=== PATIENT | male | born 1975 | race Caucasian/White ===

== ENCOUNTER → 2023-03-07 14:50 | Outpatient (BNVA) | payer SELFPAY | PROVIDERS: Visit Provider Emergency Medicine | DX: J02.9 Acute pharyngitis, unspecified (principal) | CPT/HCPCS: 87880 ==

== ENCOUNTER 2023-03-19 12:16 | Inpatient (IN) | payer BC, SELFPAY ==
[2023-03-19 12:23] VITALS: BP 155/101; PULSE 86; RESP 18; TEMP 36.7; O2SAT 96; BMI 35.4
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
[2023-03-19 13:06] LABS: Basophils % 0.5 %; Eosinophils # 0.2 10^3/uL (0.0-0.8); Eosinophils % 2.1 %; Hematocrit 50.4 % (37-53); Lymphocytes # 2.4 10^3/uL (0.8-4.8); Lymphocytes % 29.2 %; Mean Corpuscular HGB Conc 33.5 g/dL (30-55); Mean Corpuscular Hemoglobin 29.3 pg (27-33); Mean Corpuscular Volume 87.3 fl (82-101); Mean Platelet Volume 8.5 fL (7.4-10.4); Monocytes # 0.4 10^3/uL (0.2-0.9); Monocytes % 4.3 %; Neutrophils # 5.13 10^3/uL (1.8-7.7); Neutrophils % 63.8 %; Nucleated Red Blood Cells % 0 %; Platelet Count 274 10^3/cmm (157-399); Red Blood Count 5.77 10^6/uL (3.85-5.65); Red Cell Distribution Width 13.5 % (12.1-15.1); White Blood Count 8.05 10^3/uL (3.29-11.43)
--- NOTE | 2023-03-19 13:15 | PC.PHAR ---
pt and pts visitors states the pt takes no medications
--- NOTE | 2023-03-19 13:17 | XR_ITS ---
WS: [id number] Exam: XR skull <4V [id number] Date/Time of Exam: 03/19/2023 1:17 PM Reason For Exam: F20.9 - Schizophrenia, unspecified No skull fracture. Vascular and sutural markings appear normal. Physiologic intracranial calcificatio n is noted. No sign of bone destruction. Unremarkable soft tissues. IMPRESSION: 1. Unremarkable skull series.
[2023-03-19 13:25] LABS: Alanine Aminotransferase 23 U/L (0-41); Albumin Level 5.1 g/dL (3.5-5.2); Alkaline Phosphatase 90 U/L (40-130); Anion Gap 15.6 (5-19); Aspartate Amino Transferase 19 U/L (0-40); Blood Urea Nitrogen 16 mg/dL (6-20); Calcium 9.8 mg/dL (8.5-10.5); Carbon Dioxide 28 mmol/L (22-29); Chloride 99 mmol/L (98-107); Globulin 3.4 g/dL (1.3-4.6); Glomerular Filtration Rate 104.5 mL/min (90-130); Glucose 104 mg/dL (65-115); Osmolality Calculated 287 mOsm/kg (285-295); Potassium 4.6 mmol/L (3.5-5.1); Salicylate 1.6 mg/dL (3-10); Sodium 138 mmol/L (136-145); Total Bilirubin 0.6 mg/dL (0.15-1.2); Total Protein 8.5 g/dL (6.6-8.7)
[2023-03-19 13:30] LABS: Acetaminophen < 5.0 ug/mL (10-30); Alcohol Level < 10 mg/dL (0-10)
--- NOTE | 2023-03-19 15:05 | PC.NURSE ---
96 hr rights reviewed with patient with Raul FISHER @1310. No questions, comments or concerns verbalized by patient at this time. 96 hr material reviewed with patient in front of staff for outpatient treatment house in which he stays at. Patient copy left at bedside with pt.
[2023-03-19 15:20] VITALS: BP 149/97; PULSE 104; RESP 18; O2SAT 96
[2023-03-19 15:43] VITALS: BP 130/98; PULSE 93; RESP 17; TEMP 37.2; O2SAT 95
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
[2023-03-19 20:10] LABS: Amphetamines Screen Urine Negative (Negative); Barbiturates Screen Urine Negative (Negative); Benzodiazepines Screen Urine Negative (Negative); Cocaine Screen Urine Negative (Negative); Opiate Screen Urine Negative (Negative); PCP Screen Urine Negative (Negative); THC Screen Urine Negative (Negative)
[2023-03-19] MEDS: trazodone 50 mg Tablet PO ×2 (20:22→21:25)
[2023-03-19 20:32] VITALS: BP 131/87; PULSE 110; RESP 20; O2SAT 95
[2023-03-20 06:00] VITALS: RESP 15
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
[2023-03-20] MEDS: paliperidone ER 6 mg Tablet PO (13:15)
[2023-03-20 13:35] VITALS: BP 124/78; PULSE 80; RESP 15; TEMP 37; O2SAT 94
[2023-03-20] MEDS: trazodone 50 mg Tablet PO ×2 (20:26→21:44)
[2023-03-20 22:00] VITALS: BP 124/88; PULSE 121; RESP 18; TEMP 36.8; O2SAT 94
[2023-03-21 06:00] VITALS: BP 108/73; PULSE 90; RESP 16; TEMP 36.6; O2SAT 93
[2023-03-21] MEDS: paliperidone ER 6 mg Tablet PO (08:06)
[2023-03-21 14:00] VITALS: BP 118/76; PULSE 95; RESP 17; TEMP 36.5; O2SAT 95
--- NOTE | 2023-03-21 16:40 | P.NPUPN_ITS ---
Subjective NPU Subjective: Patient presented today reporting he feels better and is motivated to go home and go back to work. We discussed a need to monitor the medication and with his history likely initiate the long-acting injectable. He is reporting a willingness to do whatever to be discharged. Mental Status Exam MSE Comments: This is an overweight versus obese, white male, in hospital scrubs, with limited grooming and adequate eye contact. No abnormal movements, except for mild psychomotor retardation. Mostly cooperative with exam in mild to moderate distress. Speech was normal rate and volume. Mood described as ?I?m just ready to go, want to get this over with?; affect irritable. Thought process, organized . Thought content: patient denied any suicidal or homicidal ideation, delusions noted, patient denied visual hallucinations and endorsed auditory hallucinations. Attention, concentration, and memory appeared intact, but none were formally tested. Alert and oriented times three. Insight and judgment are impaired. Impulse control is impaired. Vitals/I&O/Wt Last Vital Signs Temp 97.7 F 03/21/23 14:00 Pulse 95 03/21/23 14:00 Resp 17 03/21/23 14:00 BP 118/76 03/21/23 14:00 Pulse Ox 95 03/21/23 14:00 O2 Del Method Room Air 03/21/23 06:00 Data NPU 03/19/23 12:58 03/19/23 12:58 A&P Assessment and plan (1) Psychosis: Qualifiers: Psychosis type: unspecified psychosis type Qualified Code(s): F29 - Unspecified psychosis not due to a substance or known physiological condition (2) Cannabis use disorder, moderate, in early remission, dependence: (3) Opioid use disorder, severe, in early remission: (4) Methamphetamine use disorder, severe, in early remission: (5) Schizophrenia: Plan This is a 47-year-old, white male, with a history of addiction issues, and about a year history of auditory hallucinations, who is convinced the cause is something that was put in his brain, even after MRI and other tests have shown nothing abnormal, who is currently in court mandated drug rehabilitation and monitoring after an arrest for harassment, related to the voices, who is willing to try medications. 1. Start Invega 6 mg. We will consider long-acting injectable. 2. Encourage individual, group, and milieu therapy. 3. Continue q-15-minute checks for safety. 4. Recommend sober living treatment at the highest level of care to which the patient is willing to commit. 5. File 21-day hold paperwork. Involuntary Hold Information 96 Hour Hold: 96 Hour Involuntary Admission: Yes 96 Hour Hold Ending Date: 03/23/23 96 Hour Hold Ending Time: 14:18 Attestations NPU Medical Necessity Statement*: Inpatient hospitalization is medically necessary and the clinically appropriate intervention, at this time. We will monitor medications and make changes as indicated.. Likely length of stay is three to five days. May change with 21 . Coding Level of Care Code Acute Code for [facility] Fwd Diagnoses Psychosis F29 Psychosis type: unspecified psychosis type Cannabis use disorder, moderate, in early remission, dependence F12.21 Opioid use disorder, severe, in early remission F11.21 Methamphetamine use disorder, severe, in early remission F15.21 Schizophrenia F20.9
[2023-03-21] MEDS: hyDROXYzine 25 mg Capsule 50 MG PO (19:37)
[2023-03-21] MEDS: OLANZapine 5 mg ODT PO (20:09)
[2023-03-21] MEDS: trazodone 50 mg Tablet PO (20:09)
[2023-03-21 22:00] VITALS: BP 136/79; PULSE 95; RESP 16; TEMP 36.9; O2SAT 98
[2023-03-22 06:00] VITALS: BP 122/79; PULSE 81; RESP 17; TEMP 36.7; O2SAT 96
[2023-03-22] MEDS: paliperidone ER 6 mg Tablet PO (09:03)
--- NOTE | 2023-03-22 12:11 | W.PM.NPUPNS ---
Subjective NPU Subjective: Patient presented today reporting that things are seeming to be improving with diminishing of auditory hallucinations and he denied currently having any of the thoughts about the device in his brain or any conspiracy theories. We discussed the risks, benefits and alternatives of initiating the Invega Sustenna given his history of nonadherence and he understood and agreed to proceed as is documented in this note. We discussed the timeline to possible discharge and filing of the 21-day hold. Mental Status Exam MSE Comments: This is an obese, white male, in hospital scrubs, with limited grooming and adequate eye contact. No abnormal movements, except for mild psychomotor retardation. Cooperative with exam in mild distress. Speech was normal rate and volume. Mood described as I am okay and I will take the shot if that is vet need to do; affect less irritable. Thought process, organized. Thought content: patient denied any suicidal or homicidal ideation, no delusions reported paranoid and bizarre delusions noted, patient denied visual hallucinations and endorsed auditory hallucinations that were diminishing. Attention, concentration, and memory appeared intact, but none were formally tested. Alert and oriented times three. Insight and judgment are impaired. Impulse control is impaired. Vitals/I&O/Wt Last Vital Signs Temp 98.0 F 03/22/23 06:00 Pulse 81 03/22/23 06:00 Resp 17 03/22/23 06:00 BP 122/79 03/22/23 06:00 Pulse Ox 96 03/22/23 06:00 O2 Del Method Room Air 03/22/23 06:00 Data NPU 03/19/23 12:58 03/19/23 12:58 A&P Assessment and plan (1) Psychosis: Qualifiers: Psychosis type: unspecified psychosis type Qualified Code(s): F29 - Unspecified psychosis not due to a substance or known physiological condition (2) Cannabis use disorder, moderate, in early remission, dependence: (3) Opioid use disorder, severe, in early remission: (4) Methamphetamine use disorder, severe, in early remission: (5) Schizophrenia: Plan This is a 47-year-old, white male, with a history of addiction issues, and about a year history of auditory hallucinations, who is convinced the cause is something that was put in his brain, even after MRI and other tests have shown nothing abnormal, who is currently in court mandated drug rehabilitation and monitoring after an arrest for harassment, related to the voices, who is willing to try medications. 1. Started Invega 6 mg. Given Invega Sustenna 234 mg IM to deltoid loading dose. Next injection due 03/29/2023 2. Encourage individual, group, and milieu therapy. 3. Continue q-15-minute checks for safety. 4. Recommend sober living treatment at the highest level of care to which the patient is willing to commit. 5. Filed 21-day hold paperwork. Involuntary Hold Information 96 Hour Hold: 96 Hour Involuntary Admission: Yes 96 Hour Hold Ending Date: 03/23/23 96 Hour Hold Ending Time: 14:18 Attestations NPU Medical Necessity Statement*: Inpatient hospitalization is medically necessary and the clinically appropriate intervention, at this time. We will monitor medications and make changes as indicated.. Likely length of stay is 5-8 days. May change with 21 hold. Coding Level of Care Code Acute Code for [facility] Fwd Diagnoses Psychosis F29 Psychosis type: unspecified psychosis type Cannabis use disorder, moderate, in early remission, dependence F12.21 Opioid use disorder, severe, in early remission F11.21 Methamphetamine use disorder, severe, in early remission F15.21 Schizophrenia F20.9
[2023-03-22 14:00] VITALS: BP 128/80; PULSE 109; RESP 16; O2SAT 95
[2023-03-22] MEDS: paliperidone palmitate 234 mg Syringe IM (14:48)
[2023-03-22] MEDS: OLANZapine 5 mg ODT PO ×2 (15:01→20:19)
--- NOTE | 2023-03-22 15:03 | PC.NURSE ---
Administered 234mg IM Invega to pt's R Deltoid, pt tolerated well.
[2023-03-22] MEDS: hyDROXYzine 25 mg Capsule 50 MG PO (19:37)
[2023-03-22 19:43] VITALS: BP 138/78; PULSE 85; RESP 20; TEMP 37; O2SAT 96
[2023-03-22] MEDS: trazodone 50 mg Tablet PO ×2 (20:18→21:25)
[2023-03-23] MEDS: paliperidone ER 6 mg Tablet PO (09:44)
--- NOTE | 2023-03-23 10:29 | P.NPUPN_ITS ---
Subjective NPU Subjective: Patient presented today reporting that he is doing fine overall. He identified reductions and auditory hallucinations and denied thinking about the supposed device in his head. He did have some notable discomfort talking about it but ultimately discussed being surprised that the medication could affect him and how he is thinking this quickly. We discussed that on staying until the next i njection and continuing to monitor his thought process during the process. Mental Status Exam MSE Comments: This is an obese, white male, in hospital scrubs, with limited grooming and adequate eye contact. No abnormal movements, except for mild psychomotor retardation. Cooperative with exam in mild distress. Speech was normal rate and volume. Mood described as I am okay and I will take the shot if that is vet need to do; affect less irritable. Thought process, organized. Thought content: patient denied any suicidal or homicidal ideation, no delusions reported paranoid and bizarre delusions noted, patient denied visual hallucinations and endorsed auditory hallucinations that were diminishing. Attention, concentration, and memory appeared intact, but none were formally tested. Alert and oriented times three. Insight and judgment are impaired. Impulse control is impaired. Vitals/I&O/Wt Last Vital Signs Temp 98.6 F 03/22/23 19:43 Pulse 85 03/22/23 19:43 Resp 20 H 03/22/23 19:43 BP 138/78 03/22/23 19:43 Pulse Ox 96 03/22/23 19:43 O2 Del Method Room Air 03/22/23 19:43 Data NPU 03/19/23 12:58 03/19/23 12:58 A&P Assessment and plan (1) Psychosis: Qualifiers: Psychosis type: unspecified psychosis type Qualified Code(s): F29 - Unspecified psychosis not due to a substance or known physiological condition (2) Cannabis use disorder, moderate, in early remission, dependence: (3) Opioid use disorder, severe, in early remission: (4) Methamphetamine use disorder, severe, in early remission: (5) Schizophrenia: Plan This is a 47-year-old, white male, with a history of addiction issues, and about a year history of auditory hallucinations, who is convinced the cause is something that was put in his brain, even after MRI and other tests have shown nothing abnormal, who is currently in court mandated drug rehabilitation and monitoring after an arrest for harassment, related to the voices, who is willing to try medications. 1. Started Invega 6 mg. Given Invega Sustenna 234 mg IM to deltoid loading dose 03/22/23. Next injection due 03/29/2023 2. Encourage individual, group, and milieu therapy. 3. Continue q-15-minute checks for safety. 4. Recommend sober living treatment at the highest level of care to which the patient is willing to commit. 5. Filed 21-day hold paperwork. Involuntary Hold Information 96 Hour Hold: 96 Hour Involuntary Admission: Yes 96 Hour Hold Ending Date: 03/23/23 96 Hour Hold Ending Time: 14:18 Attestations NPU Medical Necessity Statement*: Inpatient hospitalization is medically necessary and the clinically appropriate intervention, at this time. We will monitor medications and make changes as in dicated.. Likely length of stay is 4-7 days. May change with 21 hold. Coding Level of Care Code Acute Code for g Fwd Diagnoses Psychosis F29 Psychosis type: unspecified psychosis type Cannabis use disorder, moderate, in early remission, dependence F12.21 Opioid use disorder, severe, in early remission F11.21 Methamphetamine use disorder, severe, in early remission F15.21 Schizophrenia F20.9
[2023-03-23 13:27] VITALS: BP 117/73; PULSE 113; RESP 18; TEMP 37.2
[2023-03-23] MEDS: hyDROXYzine 25 mg Capsule 50 MG PO (19:34)
[2023-03-23 20:04] VITALS: BP 144/104; PULSE 113; RESP 18; TEMP 36.9; O2SAT 95
[2023-03-23] MEDS: trazodone 50 mg Tablet PO ×2 (20:13→21:32)
[2023-03-24 06:00] VITALS: BP 125/87; PULSE 102; RESP 16; TEMP 36.9; O2SAT 96
[2023-03-24] MEDS: paliperidone ER 6 mg Tablet PO (08:20)
--- NOTE | 2023-03-24 09:07 | W.PM.NPUPNS ---
Subjective NPU Subjective: Patient presented today reporting that his symptoms continues to diminish. We continue to discuss the goal of getting his second injection before discharge. He is supportive of that but continues to endorse a drive to get home to his family. We discussed that prior to taking this medication he was unable to really engage with his family secondary to his delusional network. He was clearly cognizant of that fact. Mental Status Exam MSE Comments: This is an obese, white male, in hospital scrubs, with limited grooming and adequate eye contact. No abnormal movements, except for mild psychomotor retardation. Cooperative with exam in no acute distress. Speech was normal rate and volume. Mood described as I am okay I just need to get home to my family; affect less irritable. Thought process, organized. Thought content: patient denied any suicidal or homicidal ideation, no delusions reported paranoid and bizarre, paranoid and persecutory delusions noted but diminishing, patient denied visual hallucinations and endorsed auditory hallucinations that were diminishing. Attention, concentration, and memory appeared intact, but none were formally tested. Alert and oriented times three. Insight and judgment are improving. Impulse control is impaired, but improving. Vitals/I&O/Wt Last Vital Signs Temp 98.4 F 03/24/23 06:00 Pulse 102 H 03/24/23 06:00 Resp 16 03/24/23 06:00 BP 125/87 03/24/23 06:00 Pulse Ox 96 03/24/23 06:00 O2 Del Method Room Air 03/23/23 13:27 Data NPU 03/19/23 12:58 03/19/23 12:58 A&P Assessment and plan (1) Psychosis: Qualifiers: Psychosis type: unspecified psychosis type Qualified Code(s): F29 - Unspecified psychosis not due to a substance or known physiological condition (2) Cannabis use disorder, moderate, in early remission, dependence: (3) Opioid use disorder, severe, in early remission: (4) Methamphetamine use disorder, severe, in early remission: (5) Schizophrenia: Plan This is a 47-year-old, white male, with a history of addiction issues, and about a year history of auditory hallucinations, who is convinced the cause is something that was put in his brain, even after MRI and other tests have shown nothing abnormal, who is currently in court mandated drug rehabilitation and monitoring after an arrest for harassment, related to the voices, who is willing to try medications. 1. Started Invega 6 mg. Given Invega Sustenna 234 mg IM to deltoid loading dose 03/22/23. Next injection due 03/29/2023 2. Encourage individual, group, and milieu therapy. 3. Continue q-15-minute checks for safety. 4. Recommend sober living treatment at the highest level of care to which the patient is willing to commit. 5. Filed 21-day hold paperwork. Involuntary Hold Information 96 Hour Hold: 96 Hour Involuntary Admission: Yes 96 Hour Hold Ending Date: 03/23/23 96 Hour Hold Ending Time: 14:18 Attestations NPU Medical Necessity Statement*: Inpatient hospitalization is medically necessary and the clinically appropriate intervention, at this time. We will monitor medications and make changes as indicated.. Likely length of stay is 3-6 days. May change with 21 hold. Coding Level of Care Code Acute Code for [facility] Fwd Diagnoses Psychosis F29 Psychosis type: unspecified psychosis type Cannabis use disorder, moderate, in early remission, dependence F12.21 Opioid use disorder, severe, in early remission F11.21 Methamphetamine use disorder, severe, in early remission F15.21 Schizophrenia F20.9
[2023-03-24] MEDS: hyDROXYzine 25 mg Capsule 50 MG PO ×2 (11:24→19:42)
[2023-03-24 14:00] VITALS: BP 125/77; PULSE 108; RESP 18; TEMP 36.9; O2SAT 95
[2023-03-24 19:51] VITALS: BP 113/80; PULSE 108; RESP 18; TEMP 37.1; O2SAT 96
[2023-03-24] MEDS: trazodone 50 mg Tablet PO ×2 (20:18→21:20)
[2023-03-25 06:00] VITALS: BP 134/92; PULSE 108; RESP 18; TEMP 36.9; O2SAT 97
--- NOTE | 2023-03-25 07:17 | P.NPUPN_ITS ---
Subjective NPU Subjective: Patient presented today reporting that he is feeling well. He continues to report a diminishing of his psychosis. We discussed the possibility of getting his family in to see and check his progress. We also discussed working with social work team for discharge planning and the possibility of discharge later this week. Mental Status Exam MSE Comments: This is an obese, white male, in hospital scrubs, with limited grooming and adequate eye contact. No abnormal movements, except for mild psychomotor retardation. Cooperative with exam in no acute distress. Speech was normal rate and volume. Mood described as I am okay I just need to get home to my family; affect less irritable. Thought process, organized. Thought content: patient denied any suicidal or homicidal ideation, no delusions reported paranoid and bizarre, paranoid and persecutory delusions noted but diminishing, patient kristian ed visual hallucinations and endorsed auditory hallucinations that were diminishing. Attention, concentration, and memory appeared intact, but none were formally tested. Alert and oriented times three. Insight and judgment are improving. Impulse control is impaired, but improving. Vitals/I&O/Wt Last Vital Signs Temp 98.4 F 03/25/23 06:00 Pulse 108 H 03/25/23 06:00 Resp 18 03/25/23 06:00 BP 134/92 03/25/23 06:00 Pulse Ox 97 03/25/23 06:00 O2 Del Method Room Air 03/24/23 14:00 03/24/23 03/25/23 03/25/23 22:59 06:59 14:59 Intake Total 0 / 800 Balance 0 / 800 Weight last 48 hrs Weight 107.048 kg Data NPU 03/19/23 12:58 03/19/23 12:58 A&P Assessment and plan (1) Psychosis: Qualifiers: Psychosis type: unspecified psychosis type Qualified Code(s): F29 - Unspecified psychosis not due to a substance or known physiological condition (2) Cannabis use disorder, moderate, in early remission, dependence: (3) Opioid use disorder, severe, in early remission: (4) Methamphetamine use disorder, severe, in early remission: (5) Schizophrenia: Plan This is a 47-year-old, white male, with a history of addiction issues, and about a year history of auditory hallucinations, who is convinced the cause is something that was put in his brain, even after MRI and other tests have shown nothing abnormal, who is currently in court mandated drug rehabilitation and monitoring after an arrest for harassment, related to the voices, who is willing to try medications. 1. Started Invega 6 mg. Given Invega Sustenna 234 mg IM to deltoid loading dose 03/22/23. Next injection due 03/29/2023. May give early 2. Encourage individual, group, and milieu therapy. 3. Continue q-15-minute checks for safety. 4. Recommend sober living treatment at the highest level of care to which the patient is willing to commit. 5. Filed 21-day hold paperwork. Involuntary Hold Information 96 Hour Hold: 96 Hour Involuntary Admission: Yes 96 Hour Hold Ending Date: 03/23/23 96 Hour Hold Ending Time: 14:18 Attestations NPU Medical Necessity Statement*: Inpatient hospitalization is medically necessary and the clinically appropriate intervention, at this time. We will monitor medications and make changes as indicated.. Likely length of stay is 2-5 days. May change with 21 hold. Coding Level of Care Code Acute Code for [facility] Fwd Diagnoses Psychosis F29 Psychosis type: unspecified psychosis type Cannabis use disorder, moderate, in early remission, dependence F12.21 Opioid use disorder, severe, in early remission F11.21 Methamphetamine use disorder, severe, in early remission F15.21 Schizophrenia F20.9
[2023-03-25] MEDS: paliperidone ER 6 mg Tablet PO (09:19)
[2023-03-25] MEDS: hyDROXYzine 25 mg Capsule 50 MG PO ×2 (09:29→19:37)
[2023-03-25 14:07] VITALS: BP 118/71; PULSE 105; RESP 18; TEMP 36.9; O2SAT 95
[2023-03-25 19:59] VITALS: BP 149/90; PULSE 112; RESP 17; TEMP 36.8; O2SAT 95
[2023-03-25] MEDS: trazodone 50 mg Tablet PO ×2 (20:31→21:37)
[2023-03-25] MEDS: ibuprofen 600 mg Tablet PO (20:32)
[2023-03-26 06:00] VITALS: BP 124/81; PULSE 85; RESP 16; TEMP 36.4; O2SAT 95
[2023-03-26] MEDS: hyDROXYzine 25 mg Capsule 50 MG PO ×2 (08:49→19:12)
[2023-03-26] MEDS: paliperidone ER 6 mg Tablet PO (08:49)
--- NOTE | 2023-03-26 08:50 | PC.NURSE ---
Patient reports anxiety 12/16. Patient states that he is anxious to be discharged. Patient cooperative, withdrawn. Administered 50mg Vsitaril PO to patient
--- NOTE | 2023-03-26 09:18 | PC.NURSE ---
During morning assessment, patient reports anxiety because he wants to get out of here . Patient rates anxiety6/10. Patient denies SI, HI, depression, and AVH. Patient took his morning medications with no issue. Patient refused to go to 0900 group, instead is laying in bed
[2023-03-26] MEDS: ibuprofen 600 mg Tablet PO ×2 (11:33→19:12)
[2023-03-26 13:12] VITALS: BP 122/68; PULSE 108; RESP 16; TEMP 36.9; O2SAT 96
--- NOTE | 2023-03-26 14:23 | P.NPUPN_ITS ---
Subjective NPU Subjective: Patient presented today reporting that he is doing better. He continues to identify the Invega is almost a wonder drug and denies any continued psychotic symptoms. We discussed his family visiting and he reports that he told them not to come because he did not want to be seen in this setting. We discussed concerns about his discharge given how things were. We discussed family's reported concerns about him saying what ever he needed to be discharged and the gravity of his behavior while responding to the delusions. We also talked about the possibility of not having the hearing given that he is returning to [facility]. Plan to give the Invega Sustenna 156 mg IM injection to the deltoid for second loading dose tomorrow. We discussed meeting before court to make some determinations. Mental Status Exam MSE Comments: This is an obese, white male, in hospital scrubs, with limited grooming and adequate eye contact. No abnormal movements, except for mild psychomotor retardation. Cooperative with exam in no acute distress. Speech was normal rate and volume. Mood described as I am okay I just need to get home to my family; affect congruent. Thought process, organized. Thought content: patient denied any suicidal or homicidal ideation, no delusions reported paranoid and bizarre, paranoid and persecutory delusions noted but diminishing, patient denied visual hallucinations and endorsed auditory hallucinations that were diminishing. Attention, concentration, and memory appeared intact, but none were formally tested. Alert and oriented times three. Insight and judgment are improving. Impulse control is impaired, but improving. Vitals/I&O/Wt Last Vital Signs Temp 98.4 F 03/26/23 13:12 Pulse 108 H 03/26/23 13:12 Resp 16 03/26/23 13:12 BP 122/68 03/26/23 13:12 Pulse Ox 96 03/26/23 13:12 O2 Del Method Room Air 03/26/23 13:12 03/25/23 03/26/23 03/26/23 22:59 06:59 14:59 Intake Total 240 / 360 Balance 240 / 360 Weight last 48 hrs Weight 107.048 kg Data NPU 03/19/23 12:58 03/19/23 12:58 A&P Assessment and plan (1) Psychosis: Qualifiers: Psychosis type: unspecified psychosis type Qualified Code(s): F29 - Unspecified psychosis not due to a substance or known physiological condition (2) Cannabis use disorder, moderate, in early remission, dependence: (3) Opioid use disorder, severe, in early remission: (4) Methamphetamine use disorder, severe, in early remission: (5) Schizophrenia: Plan This is a 47-year-old, white male, with a history of addiction issues, and about a year history of auditory hallucinations, who is convinced the cause is something that was put in his brain, even after MRI and other tests have shown nothing abnormal, who is currently in court mandated drug rehabilitation and monitoring after an arrest for harassment, related to the voices, who is willing to try medications. 1. Started Invega 6 mg. Given Invega Sustenna 234 mg IM to deltoid loading dose 03/22/23. Next injection due 03/29/2023. Plan to get an early tomorrow 03/27/2023. 2. Encourage individual, group, and milieu therapy. 3. Continue q-15-minute checks for safety. 4. Recommend sober living treatment at the highest level of care to which the patient is willing to commit. 5. Filed 21-day hold paperwork. Hearing is tomorrow 1500. Involuntary Hold Information 96 Hour Hold: 96 Hour Involuntary Admission: Yes 96 Hour Hold Ending Date: 03/23/23 96 Hour Hold Ending Time: 14:18 Attestations NPU Medical Necessity Statement*: Inpatient hospitalization is medically necessary and the clinically appropriate intervention, at this time. We will monitor medications and make changes as i ndicated.. Likely length of stay is 2-4 days. May change with 21 hold. Coding Level of Care Code Acute Code for [facility] Diagnoses Psychosis F29 Psychosis type: unspecified psychosis type Cannabis use disorder, moderate, in early remission, dependence F12.21 Opioid use disorder, severe, in early remission F11.21 Methamphetamine use disorder, severe, in early remission F15.21 Schizophrenia F20.9
--- NOTE | 2023-03-26 19:14 | PC.NURSE ---
PT REQUESTED VISTARIL FOR ANXIETY OF BEING HERE, AND MOTRIN FOR BACK PAIN.
[2023-03-26 19:54] VITALS: BP 144/98; PULSE 87; RESP 18; TEMP 36.8; O2SAT 97
[2023-03-26] MEDS: trazodone 50 mg Tablet PO ×2 (20:06→21:23)
[2023-03-27 06:39] VITALS: BP 122/78; PULSE 70; RESP 16; TEMP 36.6; O2SAT 97
[2023-03-27] MEDS: ibuprofen 600 mg Tablet PO ×2 (08:34→19:02)
[2023-03-27] MEDS: paliperidone palmitate 156 mg Syringe IM (08:35)
[2023-03-27] MEDS: paliperidone ER 6 mg Tablet PO (08:35)
[2023-03-27] MEDS: hyDROXYzine 25 mg Capsule 50 MG PO ×2 (09:20→19:02)
--- NOTE | 2023-03-27 13:02 | P.NPUPN_ITS ---
Subjective NPU Subjective: Patient presented today reporting that he is continuing to feel much better. We discussed the 21-day hold and agreed that he had shown significant improvement such that we could discharge back to [facility] given that is a structured environment and he received the second loading dose of Invega. He agreed to the plan and signed into the hospital and we discussed the plan for discharge in the morning. Mental Status Exam MSE Comments: This is an obese, white male, in hospital scrubs, with limited grooming and adequate eye contact. No abnormal movements, except for mild psychomotor retard ation. Cooperative with exam in no acute distress. Speech was normal rate and volume. Mood described as I am okay I just need to get home to my family; affect congruent. Thought process, organized. Thought content: patient denied any suicidal or homicidal ideation, no delusions reported paranoid and bizarre, paranoid and persecutory delusions noted but diminishing, patient denied visual hallucinations and endorsed auditory hallucinations that were diminishing. Attention, concentration, and memory appeared intact, but none were formally tested. Alert and oriented times three. Insight and judgment are improving. Impulse control is impaired, but improving. Vitals/I&O/Wt Last Vital Signs Temp 97.8 F 03/27/23 06:39 Pulse 70 03/27/23 06:39 Resp 16 03/27/23 06:39 BP 122/78 03/27/23 06:39 Pulse Ox 97 03/27/23 06:39 O2 Del Method Room Air 03/26/23 19:54 Data NPU 03/19/23 12:58 03/19/23 12:58 A&P Assessment and plan (1) Psychosis: Qualifiers: Psychosis type: unspecified psychosis type Qualified Code(s): F29 - Unspecified psychosis not due to a substance or known physiological condition (2) Cannabis use disorder, moderate, in early remission, dependence: (3) Opioid use disorder, severe, in early remission: (4) Methamphetamine use disorder, severe, in early remission: (5) Schizophrenia: Plan This is a 47-year-old, white male, with a history of addiction issues, and about a year history of auditory hallucinations, who is convinced the cause is something that was put in his brain, even after MRI and other tests have shown nothing abnormal, who is currently in court mandated drug rehabilitation and monitoring after an arrest for harassment, related to the voices, who is willing to try medications. 1. Started Invega 6 mg. Given Invega Sustenna 234 mg IM to deltoid loading dose 03/22/23. Next injection due 03/29/2023. Plan to give early. Was given today, 03/27/2023. 2. Encourage individual, group, and milieu therapy. 3. Continue q-15-minute checks for safety. 4. Recommend sober living treatment at the highest level of care to which the patient is willing to commit. 5. Filed 21-day hold paperwork. Hearing is tomorrow 1500. Significant improvement noted and we allow him to sign himself in today with a plan to discharge tomorrow given that he is going to a structured facility as he returns to [facility] he can continue to improve on medication from there. Involuntary Hold Information 96 Hour Hold: 96 Hour Involuntary Admission: Yes 96 Hour Hold Ending Date: 03/23/23 96 Hour Hold Ending Time: 14:18 Attestations NPU Medical Necessity Statement*: Inpatient hospitalization is medically necessary and the clinically appropriate intervention, at this time. We will monitor medications and make changes as harrison cated.. Likely length of stay is 1-3 days. Coding Level of Care Code Acute Code for g Fwd Diagnoses Psychosis F29 Psychosis type: unspecified psychosis type Cannabis use disorder, moderate, in early remission, dependence F12.21 Opioid use disorder, severe, in early remission F11.21 Methamphetamine use disorder, severe, in early remission F15.21 Schizophrenia F20.9
[2023-03-27 14:12] VITALS: BP 129/77; PULSE 102; RESP 16; TEMP 36.8; O2SAT 94
[2023-03-27] MEDS: trazodone 50 mg Tablet PO ×2 (19:58→20:55)
[2023-03-27 20:25] VITALS: BP 124/83; PULSE 94; RESP 16; TEMP 36.9; O2SAT 95
[2023-03-28 06:00] VITALS: BP 114/74; PULSE 84; RESP 15; TEMP 36.4; O2SAT 94
[2023-03-28] MEDS: paliperidone ER 6 mg Tablet PO (08:58)
[2023-03-28] MEDS: ibuprofen 600 mg Tablet PO (09:34)
--- NOTE | 2023-03-28 09:35 | PC.NURSE ---
PRN MOTRIN MOTRIN GIVEN PER PATIENT REQUEST FOR BACK PAIN
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
[2023-03-28 09:58] VITALS: BP 114/74; PULSE 84; RESP 15; TEMP 36.4; O2SAT 94
== END 2023-03-28 12:05 | disposition home or self-care (01) | DRG 885 ==
LOC: ER 14:50 → NP 15:12
PROVIDERS: Admitting Provider Psychiatry & Neurology Psychiatry; Emergency Provider Physician Assistant; Visit Provider Psychiatry & Neurology Psychiatry
DX: F29 Unspecified psychosis not due to a substance or known physiological condition (principal); Z91.128 Patient's intentional underdosing of medication regimen for other reason; F15.11 Other stimulant abuse, in remission; F11.11 Opioid abuse, in remission; F12.11 Cannabis abuse, in remission
CPT/HCPCS: 36415; 70250; 80053; 80306; 80307; 85025; 96372; 97165; 99238; 99285